=== PATIENT | male | born 1955 | race Caucasian/White ===

== ENCOUNTER → 2017-05-11 | Outpatient (CLI) | payer BC | END | disposition home or self-care (01) | LOC: GMAB 10:43 | PROVIDERS: ATTEND Family Medicine | DX: Z00.01 Encounter for general adult medical examination with abnormal findings (principal) ==

== ENCOUNTER → 2017-11-22 | Outpatient (CLI) | payer BC | END | disposition home or self-care (01) | LOC: GMAB 15:27 | PROVIDERS: ATTEND Family Medicine | DX: E03.9 Hypothyroidism, unspecified (principal); R97.20 Elevated prostate specific antigen [PSA] ==

== ENCOUNTER → 2018-05-18 | Outpatient (CLI) | payer BC | LOC: GMAB 11:31 | PROVIDERS: ATTEND Family Medicine | DX: E03.9 Hypothyroidism, unspecified (principal); R97.20 Elevated prostate specific antigen [PSA]; E11.9 Type 2 diabetes mellitus without complications; E78.4 Other hyperlipidemia; I10 Essential (primary) hypertension ==

== ENCOUNTER → 2018-08-15 | Outpatient (CLI) | payer MEDICARE | LOC: GMAL 10:50 | PROVIDERS: ATTEND Family Medicine | DX: D51.3 Other dietary vitamin B12 deficiency anemia (principal); R97.20 Elevated prostate specific antigen [PSA]; E55.9 Vitamin D deficiency, unspecified ==

== ENCOUNTER 2018-12-05 18:26 | Emergency (ER) | payer MEDICARE ==
[2018-12-05] MEDS ORDERED: SODIUM CHLORIDE 0.9% 1000ML 1,000 ML ONE (18:32)
--- NOTE | 2018-12-05 18:44 | ED.PDOC ---
History of Present Illness - General Chief Complaint: Chest Pain/MS Stated Complaint: chest pain,dizziness Time Seen by Provider: 12/05/18 18:37 Source: patient Exam Limitations: no limitations - History of Present Illness Initial Comments: Patient was at his office sitting in a chair when he felt a sudden sensation of chest fullness. That was almost three hours AWAKE OVERNIGHT MONITOR. He has been light-headed as well. No dyspnea. No history of AMI or COPD. Does not smoke or use alcohol nor recreational drugs. Has hypothyroidism and takes Levothyroxiine. No fever. No pain complaints. No history of anemia. Blood pressure normally runs in the 140s systolic. Takes a statin for hyperlipidemia. No other complaints. Upon presentation he is in sinus tachycardia. Timing/Duration: 1-3 hours Severity: moderate Improving Factors: nothing Worsening Factors: nothing Associated Symptoms: other - as in HPI Allergies/Adverse Reactions: Allergies NO KNOWN ALLERGY Allergy (Verified 12/05/18 18:45) Home Medications: Ambulatory Orders Aspirin [Aspirin Adult Low Dose] 81 mg PO DAILY 12/05/18 Atorvastatin Calcium [Lipitor] 10 mg PO DAILY 12/05/18 Levothyroxine Sodium [Synthroid] 75 mcg PO DAILY 12/05/18 Metformin HCl 500 mg PO DAILY 12/05/18 Ramipril 5 mg PO DAILY 12/05/18 Sitagliptin Phosphate [Januvia] 100 mg PO DAILY 12/05/18 Review of Systems - Review of Systems Constitutional: States: no symptoms reported EENTM: States: no symptoms reported Respiratory: States: see HPI Cardiology: States: see HPI Gastrointestinal/Abdominal: States: no symptoms reported Genitourinary: States: no symptoms reported Musculoskeletal: States: no symptoms reported Skin: States: no symptoms reported Neurological: States: see HPI Endocrine: States: see HPI Hematologic/Lymphatic: States: no symptoms reported Family Medical History - Family History Father Family History: Unknown Living Status: Unknown Physical Exam - Physical Exam General Appearance: Alert Eye Exam: bilateral normal Ears, Nose, Throat: hearing grossly normal, normal ENT inspection Neck: non-tender, full range of motion Respiratory: chest non-tender, lungs clear, normal breath sounds, no respiratory distress Cardiovascular/Chest: normal peripheral pulses, tachycardia Gastrointestinal/Abdominal: normal bowel sounds, non tender, soft Back Exam: normal inspection, no CVA tenderness Extremity: normal range of motion, non-tender, normal inspection Neurologic: cod clerk II-XII nml as tested, no motor/sensory deficits, alert, normal mood/affect, oriented x 3 Skin Exam: normal color Lymphatic: no adenopathy Progress - Progress Progress: 12/05/18 22:44 Laboratory Tests 12/05/18 12/05/18 12/05/18 18:39 18:39 18:39 WBC 10.3 RBC 5.19 Hgb 16.3 Hct 48.9 MCV 94.2 H MCH 31.4 H MCHC 33.4 RDW 13.2 Plt Count 188 MPV 8.0 Absolute Neuts (auto) 8.80 H Absolute Lymphs (auto) 1.00 Absolute Monos (auto) 0.40 Absolute Eos (auto) 0.00 Absolute Basos (auto) 0.10 Neutrophils % 84.8 H Lymphocytes % 9.5 L Monocytes % 4.3 Eosinophils % 0.4 L Basophils % 1.0 PT 9.9 INR 0.99 PTT (SP) 26.1 D-Dimer, Quantitative Sodium 133 L Potassium 4.4 Chloride 97 L Carbon Dioxide 27 Anion Gap 13.4 BUN 28 H Creatinine 1.67 H BUN/Creatinine Ratio 16.8 Random Glucose 253 H Serum Osmolality 280.4 Calcium 9.9 Total Bilirubin 0.7 AST 54 H ALT 70 H Alkaline Phosphatase 48 Creatine Kinase 124 CK-MB (CK-2) 4.1 CK-MB (CK-2) % Not Reportable Troponin I 0.04 B-Natriuretic Peptide Serum Total Protein 7.7 Albumin 4.6 Globulin 3.1 Albumin/Globulin Ratio 1.5 TSH Thyroxine (T4) 12/05/18 12/05/18 12/05/18 18:39 18:39 19:01 WBC RBC Hgb Hct MCV MCH MCHC RDW Plt Count MPV Absolute Neuts (auto) Absolute Lymphs (auto) Absolute Monos (auto) Absolute Eos (auto) Absolute Basos (auto) Neutrophils % Lymphocytes % Monocytes % Eosinophils % Basophils % PT INR PTT (SP) D-Dimer, Quantitative 0.28 Sodium Potassium Chloride Carbon Dioxide Anion Gap BUN Creatinine BUN/Creatinine Ratio Random Glucose Serum Osmolality Calcium Total Bilirubin AST ALT Alkaline Phosphatase Creatine Kinase CK-MB (CK-2) CK-MB (CK-2) % Troponin I B-Natriuretic Peptide 20.2 Serum Total Protein Albumin Globulin Albumin/Globulin Ratio TSH 3.29 Thyroxine (T4) 8.31 12/05/18 21:37 WBC RBC Hgb Hct MCV MCH MCHC RDW Plt Count MPV Absolute Neuts (auto) Absolute Lymphs (auto) Absolute Monos (auto) Absolute Eos (auto) Absolute Basos (auto) Neutrophils % Lymphocytes % Monocytes % Eosinophils % Basophils % PT INR PTT (SP) D-Dimer, Quantitative Sodium Potassium Chloride Carbon Dioxide Anion Gap BUN Creatinine BUN/Creatinine Ratio Random Glucose Serum Osmolality Calcium Total Bilirubin AST ALT Alkaline Phosphatase Creatine Kinase CK-MB (CK-2) CK-MB (CK-2) % Troponin I 0.56 H* B-Natriuretic Peptide Serum Total Protein Albumin Globulin Albumin/Globulin Ratio TSH Thyroxine (T4) Initial EKG showed tachycardia with a rate in the 190s. P waves were not visible due to the rate. the patient's sbp was 102 and it was unclear if that was the cause of the tachycardia or the result. the patient also is on Levothyroxine which expanded the differential. He was started on a one liter bolus of NS but the sbp went down to the 90s. Vagal maneuvers failed to decrease the rate. He was successfully converted to NSR with adenosine 12 mg IV x one. Initial troponin was negative. A three hour troponin, which also represented 6 hours from the index event, was 0.56. It was unclear if this represented an AMI with a troponin on its way up, or "cardiac sweat" from increased demand by the SVT. Patient was given heparin 5000 IU IV x one then 1000 IU//hour drip. Plavix 300 mg po x one. ASA 324 mg po x one. Atorvastatin 80 mg po x one. Lopressor 5 mg IV x one. Accepted for transfer to [facility]. by Dr. Merida. I spoke with the mechanical technologist, Dr. Pérez, who agreed with the plan and indicated that he would accept the patient after cleared in the E.R. The plan was discussed in detail with the patient. Questions were elicited and answered. The patient voiced understanding and agreement with the plan. Departure - Departure Clinical Impression: Supraventricular tachycardia, Elevated troponin Disposition: Transfer to Hospital Condition: Fair Departure Forms: ED Discharge - Pt. Copy, Patient Portal Self Enrollment Referrals: Addison Robles MD [Active Staff] - 1-2 Weeks Home Medications: Ambulatory Orders Aspirin [Aspirin Adult Low Dose] 81 mg PO DAILY 12/05/18 Atorvastatin Calcium [Lipitor] 10 mg PO DAILY 12/05/18 Levothyroxine Sodium [Synthroid] 75 mcg PO DAILY 12/05/18 Metformin HCl 500 mg PO DAILY 12/05/18 Ramipril 5 mg PO DAILY 12/05/18 Sitagliptin Phosphate [Januvia] 100 mg PO DAILY 12/05/18
[2018-12-05] MEDS: SODIUM CHLORIDE 0.9% 1000ML 1,000 ML IVS ONE ×2 (18:50→19:25)
--- NOTE | 2018-12-05 18:57 | RAD ---
EXAM: Chest,1 View CLINICAL INDICATION: Tachycardia COMPARISON: 10/03/2008 FINDINGS: A single view of the chest was obtained. The heart size is normal. The pulmonary vascularity is unremarkable. The lungs are clear. There is no consolidation, infiltrate, pleural effusion, or pneumothorax. IMPRESSION: No evidence of active pulmonary disease. Electronically signed by: Chris Batres MD 12/05/2018 6:56 PM DISHTANK OPERATOR
[2018-12-05] MEDS ORDERED: ADENOSINE INJ 6 MG/2 ML SYG IV ONE (19:30)
[2018-12-05] MEDS: ADENOSINE INJ 6 MG/2 ML SYG IV ONE (19:35)
[2018-12-05] MEDS ORDERED: HEPARIN PREMIX 500 ML ONE (22:37)
[2018-12-05] MEDS: CLOPIDOGREL 75 MG TAB PO ONE (22:39)
[2018-12-05] MEDS: ASPIRIN (CHEWABLE) 81 MG TAB PO ONE (22:40)
[2018-12-05] MEDS: METOPROLOL TARTRATE INJ 5 MG/5 ML VIAL IV ONE (22:40)
[2018-12-05] MEDS: HEPARIN SODIUM (PORCINE) 5,000 U/ML VIAL IV ONE (22:40)
[2018-12-05] MEDS: ATORVASTATIN 20 MG TAB PO ONE (22:54)
[2018-12-05] MEDS: HEPARIN PREMIX 25,000 UNITS in PREMIX BAG 1 BAG IVS SCH (22:56)
[2018-12-05 22:57] VITALS: TEMP 97.6
[2018-12-05 23:21] VITALS: BP 155/108; O2SAT 97
== END 2018-12-05 23:21 | disposition short-term general hospital (02) ==
LOC: ER 18:26
DX: I47.1 Supraventricular tachycardia (principal); R79.89 Other specified abnormal findings of blood chemistry; E78.5 Hyperlipidemia, unspecified; E03.9 Hypothyroidism, unspecified; Z79.899 Other long term (current) drug therapy; Z79.82 Long term (current) use of aspirin
CPT/HCPCS: 71045; 80053; 82550; 82553; 83880; 84436; 84443; 84484; 85025; 85379; 85610; 85730; 93005; J0153; J1644; J7030

== ENCOUNTER → 2019-04-04 | Outpatient (CLI) | payer MEDICARE | LOC: GMAL 11:38 | PROVIDERS: ATTEND Family Medicine | DX: R97.20 Elevated prostate specific antigen [PSA] (principal); N18.3 Chronic kidney disease, stage 3 (moderate) ==

== ENCOUNTER → 2019-06-13 | Outpatient (CLI) | payer MEDICARE | LOC: GMAL 11:51 | PROVIDERS: ATTEND Family Medicine | DX: R97.20 Elevated prostate specific antigen [PSA] (principal) ==

== ENCOUNTER → 2019-07-06 | Outpatient (CLI) | payer MEDICARE ==
--- NOTE | 2019-07-09 08:32 | MRI ---
EXAM DESCRIPTION: MRI pelvis without and with contrast CLINICAL HISTORY: Elevated PSA. Scheduled for biopsy next week COMPARISON: None. TECHNIQUE: Multiplanar, multisequence MR images of the pelvis, prostate protocol pre and post intravenous gadolinium FINDINGS: Normal T2 bright signal throughout the peripheral zone. No mass lesion in the peripheral zone Mass lesion of the transitional zone , left and anterior. Homogeneous intermediate T2 signal best appreciated on axial series 301 image 11, coronal series 501 image 15. Precontrast T1 minimally hyperintense compared to the remainder of the transitional zone. Early arterial phase marked hyperenhancement with progressive delayed enhancement. Diffusion hyperintensity with hypointensity on ADC map series 802 image 8. Approximate measurements 2.8 x 2 x 2.2 cm. Intact capsule of the prostate. No diagnostic abnormality of the seminal vesicles No regional adenopathy or other adenopathy in the pelvis included in the [id number]. No mass or inflammatory process in the visualized small and large intestine. Sigmoid diverticulosis without diverticulitis. No mass lesion or marrow abnormality of the muscles or bones included in the [id number] IMPRESSION: Mass lesion in the transitional zone strongly suggesting carcinoma. This is in the left and anterior transition zone Prostate hypertrophy with thickened trabeculated urinary bladder wall from chronic low-grade bladder outlet obstruction Electronically signed by: Neto Benitez MD 07/09/2019 8:31 AM CDT
== END ==
LOC: MRI 09:00
PROVIDERS: ATTEND Radiology Radiation Oncology
DX: N42.9 Disorder of prostate, unspecified (principal); N40.0 Benign prostatic hyperplasia without lower urinary tract symptoms

== ENCOUNTER 2019-08-01 21:54 | Emergency (ER) | payer MEDICARE ==
[2019-08-01] MEDS ORDERED: ADENOSINE INJ 6 MG/2 ML SYG IV ONE ×2 (22:05→22:15)
[2019-08-01] MEDS ORDERED: SODIUM CHLORIDE 0.9% 1000ML 1,000 ML ONE (22:05)
[2019-08-01] MEDS ORDERED: SODIUM CHLORIDE 0.9% (FLUSH) 10 ML SYG IV PRN (22:15)
[2019-08-01] MEDS ORDERED: SODIUM CHLORIDE 0.9% 1000ML 1,000 ML IVS ONE (22:15)
--- NOTE | 2019-08-01 22:42 | ED.PDOC ---
History of Present Illness - General Chief Complaint: Cardiovascular Problem Stated Complaint: heart racing Time Seen by Provider: 08/01/19 22:18 Source: patient, family - History of Present Illness Initial Comments: 64 yo M with hx of SVT presents for tachycardia after going on a one mile walk with his around 8:30pm tonight. Pt denies palpitations but states he thought maybe his heart was racing and took his pulse and noticed it was 140's. He tried to take an extra dose of verapamil however the sx did not subside and therefore he presented to the ED. Hx of normal stress echo. No hx of CAD. Has had one episode in the past where he was admitted because his cardiac enzymes were elevated, pt believes because he waited 4 hours after sx onset, the subsequent workup inpt at [facility] was normal. 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 Only associated sx is lightheadedness. Denies f/c, cough, congestion, SOB, CP, abd pain. n/v/d, edema. Allergies/Adverse Reactions: Allergies NO KNOWN ALLERGY Allergy (Verified 12/05/18 18:45) Home Medications: Ambulatory Orders Aspirin [Aspirin Adult Low Dose] 81 mg PO DAILY 12/05/18 Atorvastatin Calcium [Lipitor] 10 mg PO DAILY 12/05/18 Levothyroxine Sodium [Synthroid] 75 mcg PO DAILY 12/05/18 Metformin HCl [Metformin Hydrochloride] 500 mg PO DAILY 12/05/18 Ramipril 5 mg PO DAILY 12/05/18 Sitagliptin Phosphate [Januvia] 100 mg PO DAILY 12/05/18 Review of Systems - Review of Systems Constitutional: Denies: chills, fever EENTM: Denies: blurred vision, double vision Respiratory: Denies: orthopnea, short of breath Cardiology: States: other - tachycardia. Denies: chest pain, palpitations Gastrointestinal/Abdominal: Denies: nausea, vomiting Musculoskeletal: Denies: back pain, neck pain Skin: Denies: no symptoms reported, change in color Neurological: Denies: headache, numbness, weakness Hematologic/Lymphatic: Denies: easy bleeding, easy bruising Past Medical History (General) - Patient Medical History Hx Seizures: No Hx of COPD: No Hx Cardiac Disorders: Yes - SVT 11/2018 Hx Congestive Heart Failure: No Hx Hypertension: Yes Hx Thyroid Disease: Yes Hx Diabetes: Yes Hx Cancer: Yes - tongue, prostate - Vaccination History Hx Tetanus, Diphtheria Vaccination: Yes Hx Influenza Vaccination: No Hx Pneumococcal Vaccination: No - Social History Hx Tobacco Use: No Hx Alcohol Use: No Hx Depression: No - Activities of Daily Living Hospice Agency (if applicable):: None - Female History Patient is a Female of Child Bearing Age (10 -59 yrs old): No - Triage Comment ED Triage Comment: pt to er stretcher #2, voices that he checked his hr on his home o2 sat and noted that it was 160's. pt connected to cardiac monitors and noted to be in SVT with HR 160's. skin cool, bp 86/62. pt voices no chest pain with minimal dizziness during ambulation. respirations even/unlabored with equal rise and fall of chest Family Medical History - Family History Father Family History: Unknown Living Status: Unknown Physical Exam - Physical Exam General Appearance: Alert, No apparent distress, Well Developed, Well Groomed, Well Hydrated, Well Nourished Neck: full range of motion, supple Respiratory: chest non-tender, lungs clear, normal breath sounds, no respiratory distress, no accessory muscle use Cardiovascular/Chest: normal peripheral pulses, no edema, no gallop, no JVD, no murmur, tachycardia Gastrointestinal/Abdominal: non tender, soft Extremity: normal range of motion, no pedal edema Neurologic: no motor/sensory deficits, alert Skin Exam: normal color, warm/dry Progress - Progress Progress: 08/01/19 22:30 Pt arrived in SVT, responded to 6mg adenosine, repeat EKG with NSR with slight tachycardia. Pt well appearing, resting comfortably. 08/01/19 22:53 Troponin wnl. Pt would like to be d/c home. Will repeat troponin in two hours and continue to monitor. If pt has no repeat episodes of SVT and troponin remains wnl, will plan for d/c home. Pt states he can see his roll shop supervisor zandra mandujano. 08/02/19 00:13 Pt doing well, resting comfortably, no repeat episodes of SVT, awaiting repeat troponin. 08/02/19 00:58 I have explained and reviewed all results with the pt. Repeat troponin neg. No repeat episodes of SVT. I explained that emergent conditions may arise and to return to the ER for new, worsening, or any persistent conditions. I've explained the importance of f/u for recheck. All questions and concerns addressed at this time. Pt understands and agrees with plan. Pt well appearing, NAD, is stable for discharge. Sherrill Jenkins MD Emergency Medicine Physician Billing Number [id number] - Results/Orders Results/Orders: CXR: IMPRESSION: No acute cardiopulmonary abnormalities. Electronically signed by: Maria Alejandra Coronado MD 08/01/2019 10:49 PM CDT 08/01/19 22:15 IV Care:Saline Lock per Protoc QSHIFT Telemetry .ONCE Sodium Chloride 0.9% (Flush) [Saline Flush Syringe] 10 ml IV PRN PRN EKG Stat Pulse Ox Stat Pulse Oximetry Assessment DAILY 08/01/19 22:19 Telemetry ONCE 08/02/19 00:30 EKG STAT Laboratory Results - last 24 hr 08/01/19 08/01/19 08/01/19 22:10 22:10 22:10 WBC 5.0 RBC 4.30 L Hgb 13.9 L Hct 40.8 L MCV 94.8 H MCH 32.3 H MCHC 34.1 RDW 12.8 Plt Count 177 MPV 7.4 Absolute Neuts (auto) 3.60 Absolute Lymphs (auto) 0.90 L Absolute Monos (auto) 0.40 Absolute Eos (auto) 0.00 Absolute Basos (auto) 0.10 Neutrophils % 72.2 Lymphocytes % 17.7 L Monocytes % 8.1 Eosinophils % 0.8 L Basophils % 1.2 PT 9.4 INR 0.94 PTT (SP) 25.3 Sodium 129 L Potassium 4.3 Chloride 95 L Carbon Dioxide 22 Anion Gap 16.3 BUN 32 H Creatinine 1.57 H BUN/Creatinine Ratio 20.4 H Random Glucose 182 H Serum Osmolality 270.5 L Calcium 9.4 Magnesium 1.5 L Creatine Kinase 188 H CK-MB (CK-2) 4.6 H* CK-MB (CK-2) % 2.45 Troponin I < 0.02 B-Natriuretic Peptide 16.4 TSH 9.40 H Free T4 1.02 Free T3 pg/mL 2.61 08/02/19 00:25 WBC RBC Hgb Hct MCV MCH MCHC RDW Plt Count MPV Absolute Neuts (auto) Absolute Lymphs (auto) Absolute Monos (auto) Absolute Eos (auto) Absolute Basos (auto) Neutrophils % Lymphocytes % Monocytes % Eosinophils % Basophils % PT INR PTT (SP) Sodium Potassium Chloride Carbon Dioxide Anion Gap BUN Creatinine BUN/Creatinine Ratio Random Glucose Serum Osmolality Calcium Magnesium Creatine Kinase CK-MB (CK-2) CK-MB (CK-2) % Troponin I < 0.02 B-Natriuretic Peptide TSH Free T4 Free T3 pg/mL - EKG/XRAY/CT Comments: EKG on arrival: SVT, rate of 165, L axis, normal ST and T waves, no stemi - Additional EKG/XRAY/Consults EKG #2: Sinus, Tachy, no ST T wave changes Comments: Repeat EKG after Adenosine: Sinus tach at 120, incomplete RBBB, L axis Departure - Departure Clinical Impression: SVT (supraventricular tachycardia) Time of Disposition: 00:56 Disposition: Discharge to Home or Self Care Health Concerns: Condition: stable Departure Forms: ED Discharge - Pt. Copy, Patient Portal Self Enrollment Instructions: DI for Chest Pain Referrals: Sean Sunshine III, MD [Primary Care Provider] - 1-2 Weeks Home Medications: Ambulatory Orders Aspirin [Aspirin Adult Low Dose] 81 mg PO DAILY 12/05/18 Atorvastatin Calcium [Lipitor] 10 mg PO DAILY 12/05/18 Levothyroxine Sodium [Synthroid] 75 mcg PO DAILY 12/05/18 Metformin HCl [Metformin Hydrochloride] 500 mg PO DAILY 12/05/18 Ramipril 5 mg PO DAILY 12/05/18 Sitagliptin Phosphate [Januvia] 100 mg PO DAILY 12/05/18 Additional Instructions: Follow up: [facility] As need, if symptoms worsen Your roll shop supervisor Make appointment tomorrow for follow up
--- NOTE | 2019-08-01 22:50 | RAD ---
EXAM DESCRIPTION: XR Chest, 1 View CLINICAL HISTORY: 64 years Male heart racing TECHNIQUE: One view of the chest. COMPARISON: No prior exams provided for comparison. FINDINGS: The lungs are clear without focal consolidation, effusion, or pneumothorax. The cardiomediastinal silhouette and central pulmonary vasculature are normal. No acute osseous abnormalities. IMPRESSION: No acute cardiopulmonary abnormalities. Electronically signed by: Maria Alejandra Coronado MD 08/01/2019 10:49 PM CDT
[2019-08-02 00:08] VITALS: TEMP 97.6; O2SAT 98
[2019-08-02 01:13] VITALS: BP 143/92
== END 2019-08-02 01:10 | disposition home or self-care (01) ==
LOC: ER 21:54
DX: I47.1 Supraventricular tachycardia (principal); I45.10 Unspecified right bundle-branch block; R42 Dizziness and giddiness; I10 Essential (primary) hypertension; E07.9 Disorder of thyroid, unspecified; E11.9 Type 2 diabetes mellitus without complications; Z85.46 Personal history of malignant neoplasm of prostate; Z85.810 Personal history of malignant neoplasm of tongue; Z79.82 Long term (current) use of aspirin; Z79.84 Long term (current) use of oral hypoglycemic drugs; Z79.899 Other long term (current) drug therapy
CPT/HCPCS: 36415; 71045; 80048; 82550; 82553; 83880; 84439; 84443; 84481; 84484; 85025; 85610; 85730; 93005; J0153; J7030

== ENCOUNTER → 2019-08-17 | Outpatient (CLI) | payer MEDICARE ==
--- NOTE | 2019-08-19 16:54 | NM ---
EXAM DESCRIPTION: Bone Scan, Whole Body: Nuclear Medicine CLINICAL HISTORY: 64 years Male PROSTATE CA COMPARISON: MR pelvis without and with gadolinium IV contrast June 2019. TECHNIQUE: Patient injected with 26.2 mCi of technetium 99M MDP IV. Delayed gamma camera images from various planes were obtained 3 hr after injection. Whole body images as well as anterior and posterior thoracic images and anterior posterior and lateral skull and cervical spine images. FINDINGS: Symmetric bilateral increased activity in the posterior T9 region suggesting bilateral facet arthrosis. Activity in the anterior right costochondral junctions T6-T7 and T8. Bilateral activity in the patellofemoral joints more left than right. Increased activity in the dorsal aspect of the mid left foot. Focal increased activity in the region of the left temporomandibular joint more intense on the anterior projections. Bilateral symmetric activity in the acromioclavicular joints. Increased activity in the anterior nasal passages bilaterally symmetric. Also increased activity in the maxillary and mandibular dental regions. No abnormal activity in the long bones or flat bones of the axial or appendicular skeleton. Normal soft tissue activity in the abdomen and pelvis and in the region of the thyroid. IMPRESSION: 1. Activity in the left jaw region at the base of the skull is most likely within the left temporal mandibular joint. Correlate with clinical findings and bilateral TMJ radiographs. Also increased activity in the mandibular and maxillary teeth more right than left. 2. Activity in the anterior right rib near the costochondral junctions T6-T8 and also activity in the region of the T9 posterior facet joints. Most likely degenerative. Also activity in the bilateral knees and left foot is most likely degenerative. Correlate with radiographs. 3. No metastatic type activity seen in the long bones or flat bones including the skull. Electronically signed by: Gregg Campbell MD 08/19/2019 4:53 PM CDT
== END ==
LOC: NM 08:07
PROVIDERS: ATTEND Radiology Radiation Oncology
DX: C61 Malignant neoplasm of prostate (principal)

== ENCOUNTER → 2019-08-28 | Outpatient (CLI) | payer MEDICARE | LOC: GMAL 10:34 | PROVIDERS: ATTEND Family Medicine | DX: E03.9 Hypothyroidism, unspecified (principal); R23.3 Spontaneous ecchymoses ==

== ENCOUNTER → 2019-10-04 | Outpatient (CLI) | payer MEDICARE | LOC: GMAL 10:41 | PROVIDERS: ATTEND Family Medicine | DX: D51.3 Other dietary vitamin B12 deficiency anemia (principal); E03.9 Hypothyroidism, unspecified; E55.9 Vitamin D deficiency, unspecified; I10 Essential (primary) hypertension; E11.9 Type 2 diabetes mellitus without complications; E78.49 Other hyperlipidemia ==

== ENCOUNTER → 2020-04-22 | Outpatient (CLI) | payer MEDICARE | LOC: GMAL 16:45 | PROVIDERS: ATTEND Family Medicine | DX: R97.20 Elevated prostate specific antigen [PSA] (principal); E11.9 Type 2 diabetes mellitus without complications; R53.83 Other fatigue; E78.49 Other hyperlipidemia; Z79.899 Other long term (current) drug therapy ==

== ENCOUNTER → 2020-09-22 | Outpatient (CLI) | payer MEDICARE | LOC: LAB.NP 10:55 | PROVIDERS: ATTEND Family Medicine | DX: D51.3 Other dietary vitamin B12 deficiency anemia (principal); E55.9 Vitamin D deficiency, unspecified; E11.9 Type 2 diabetes mellitus without complications; I10 Essential (primary) hypertension; R97.20 Elevated prostate specific antigen [PSA]; R94.4 Abnormal results of kidney function studies; E78.49 Other hyperlipidemia ==